=== PATIENT | female | born 1965 | race American Indian/Alaskan Native ===

== ENCOUNTER 2018-10-31 14:54 | Observation (INO) | payer MEDICAID, MEDICARE, OTHER ==
[2018-10-31] MEDS ORDERED: NS 0.9% 1000 ML** 1,000 ML IV ONE (15:23)
--- NOTE | 2018-10-31 15:29 | ED ---
Dizziness - HPI Summary HPI Summary: A 53 y/o female brought in by [facility] presents to [facility] with a chief complaint of dizziness. The patient reports that she went to [facility] because her PCP referred her to them when she said that she was dizzy with chest soreness. She claims that the dizziness started 3-5 days ago, and she states that she had a left ear ache before her dizziness started. She denies ear ringing. Her dizziness is worsened with walking and she describes the dizziness as room spinning. At triage she rated her pain as a 6/10 in severity. At [facility] the patient had an elevated troponin of 0.11. She had a chest CT done which showed no clot in lung. She denies any DVT claiming that she had a blood clot in a superficial vein. The patient is on Eliquis. - History Of Current Complaint Stated Complaint: ELEVATED TROP PER EMS Time Seen by Provider: 10/31/18 15:09 Hx Obtained From: Patient Onset/Duration: Suddenly Timing: Days Severity Initially: Mild Severity Currently: Moderate Character: Room Spinning, Dizzy Aggravating Factor(s): Nothing Alleviating Factor(s): Nothing Associated Signs And Symptoms: Positive: Chest Pain. Negative: Fever - Allergies/Home Medications Allergies/Adverse Reactions: Allergies Allergy/AdvReac Type Severity Reaction Status Date / Time Adhesive Tape Allergy Unknown SKIN PEELS Verified 09/22/18 10:46 WHEN BEING REMOVED hydrocortisone Allergy rash, Verified 09/22/18 10:46 itching latex Allergy sores Verified 09/22/18 10:46 naproxen Allergy Nausea Verified 09/22/18 10:46 topiramate Allergy Blurred Verified 09/22/18 10:46 Vision zonisamide [From Zonegran] Allergy Headache Verified 09/22/18 10:46 gabapentin AdvReac Mild weight gain Verified 09/22/18 10:46 ENVIRONMENTAL Allergy Intermediate SOB, Uncoded 07/22/17 11:40 BURNING IN THROAT Home Medications: Home Medications Cyanocobalamin (Vitamin B-12) [Vitamin B-12] 1,000 mcg SL DAILY 10/31/18 [ History Confirmed 10/31/18] Diazepam TAB(*) [Valium TAB(*)] 2.5 mg PO TID PRN MDD 2.5mg 10/31/18 [History Confirmed 10/31/18] Docusate CAP* [Colace Cap*] 100 mg PO BID PRN 10/31/18 [History Confirmed ] busPIRone TAB* [Buspar TAB *] 15 mg PO TID 10/31/18 [History Confirmed 10/31/18] tiZANidine TAB* [Zanaflex TAB*] 4 mg PO BID PRN 10/31/18 [History Confirmed 04/10] PMH/Surg Hx/FS Hx/Imm Hx Endocrine/Hematology History: Denies: Hx Diabetes - HISTORY OF LOW BLOOD SUGAR Cardiovascular History: Reports: Hx Angina, Hx Hypercholesterolemia, Hx Hypertension, Other Cardiovascular Problems/Disorders - HX OF ANKLE SWELLING IN THE PAST Respiratory History: Reports: Hx Asthma - SLEEP APNEA, Hx Pneumonia, Hx Sleep Apnea - NO MACHINE AT PRESENT TIME, Other Respiratory Problems/Disorders - Chronic Sinus Problems GI History: Reports: Hx Gastroesophageal Reflux Disease - CONTROL WITH MEDICATION, Other GI Disorders - HX OF GASTRIC BYPASS History: Reports: Hx Kidney Infection, Hx Kidney Stones - BI-LATERAL, Other Problems/Disorders Musculoskeletal History: Reports: Hx Arthritis, Hx Back Problems, Hx Fibromyalgia, Hx Tendonitis, Other Musculoskeletal History - Bilateral Carpal Tunnel Sensory History: Reports: Hx Contacts or Glasses - GLASSES Denies: Hx Hearing Aid Opthamlomology History: Reports: Hx Contacts or Glasses - GLASSES Neurological History: Reports: Hx Headaches, Hx Migraine Psychiatric History: Reports: Hx Anxiety, Hx Depression - Surgical History Surgery Procedure, Year, and Place: 2005 Open Gastric Bypass and Cholecystectomy , [facility]. 1989' Bilateral Carpal Tunnel Surgery, [place]. Umbilical Hernia Surgery x2, [place]. Three D&C's, [place]. Kidney Stone Procedures x2, [place]; [place] [facility] [place]. 2007 DILATION CURETTAGE, HYSTEROSCOPY, OPEN EXPLORATION OF ABDOMINAL WALL, REMOVAL FIBROID [place] [facility] [place]OTAL [place]BDOM[place] [facility] [place]. [place]2012 [place]SW[place] [facility] [place]x Anesthesia Reactions: Yes - woke early during a general with intubation Infectious Disease History: No Infectious Disease History: Reports: Hx Shingles - 2014 Denies: Traveled Outside the [place] in Last 30 Days - Family History Known Family History: Positive: Cardiac Disease - Social History Alcohol Use: None Alcohol Amount: 2-3 drinks per year. Substance Use Type: Reports: None Substance Use Comment - Amount & Last Used: fentanyl patch and Nucynta Smoking Status (MU): Never Smoked Tobacco Have You Smoked in the Last Year: No Review of Systems Negative: Fever Positive: Chest Pain Neurological: Other - positive: dizziness All Other Systems Reviewed And Are Negative: Yes Physical Exam - Summary Physical Exam Summary: GENERAL: Patient is a well-developed and nourished F who is lying comfortable in the stretcher. Patient is not in any acute respiratory distress. HEAD AND FACE: Normocephalic EYES: PERRLA, EOMI x 2. EARS: Hearing grossly intact. MOUTH: Oropharynx within normal limits. NECK: Supple, trachea is midline, no adenopathy, no JVD, no carotid bruit. CHEST: Symmetric, no tenderness at palpation LUNGS: Clear to auscultation bilaterally. No wheezing or crackles. CVS: Regular rate and rhythm, S1 and S2 present, no murmurs or gallops appreciated. ABDOMEN: Soft, non-tender. Bowel sounds are normal. No abnormal abdominal pulsations. EXTREMITIES: LLE 1+ pitting edema and erythema to anterior area NEURO: Alert and oriented x 3. No acute neurological deficits. Speech is normal and follows commands. SKIN: Dry and warm Neuro exam extended: Cranial nerves II-XII grossly intact, no dysmetria finger to nose, nml heel to ribeiro Triage Information Reviewed: Yes Vital Signs On Initial Exam: Initial Vitals Temp Pulse Resp BP Pulse Ox 97.9 F 56 20 135/90 99 10/31/18 15:13 10/31/18 15:13 10/31/18 15:13 10/31/18 15:13 10/31/18 15:13 Vital Signs Reviewed: Yes Diagnostics - Vital Signs Vital Signs Temp Pulse Resp BP Pulse Ox 10/31/18 15:13 97.9 F 56 20 135/90 99 - Laboratory Result Diagrams: 10/31/18 15:35 10/31/18 15:35 Lab Statement: Any lab studies that have been ordered have been reviewed, and results considered in the medical decision making process. - CT Brain MRI CT Interpretation Completed By: Radiologist Summary of CT Findings: 1. NO EVIDENCE FOR ACUTE INTRACRANIAL ABNORMALITY. 2. A FEW SMALL AREAS OF INCREASED SIGNAL INTENSITY IN T2-WEIGHTED IMAGES IN THE. SUBCORTICAL AND PERIVENTRICULAR WHITE MATTER SUGGESTIVE OF MILD CHRONIC SMALL VESSEL. ISCHEMIC CHANGES LESS LIKELY DEMYELINATING DISEASE. ED physician has reviewed this imaging report. - EKG 15:42 Cardiac Rate: Bradycardia - 54 bpm EKG Rhythm: Sinus Bradycardia Summary of EKG Findings: Sinus bradycardia at 54bpm, intraventricular conduction delay. Dizzy Course/Dx - Course Course Of Treatment: A 53 y/o female brought in by [facility] presents to [facility] with a chief complaint of dizziness. The physical exam revealed LLE 1+ pitting edema and erythema to anterior area. EKG at 15:42 showed Sinus bradycardia at 54 bpm, intraventricular conduction delay. In the ED course the patient was given Sodium Chloride IV. Bloodwork and chemistries obtained. Troponin of 0.09 at 15:35. Brain MRI impression: 1. NO EVIDENCE FOR ACUTE INTRACRANIAL ABNORMALITY. 2. A FEW SMALL AREAS OF INCREASED SIGNAL INTENSITY IN T2-WEIGHTED IMAGES IN THE. SUBCORTICAL AND PERIVENTRICULAR WHITE MATTER SUGGESTIVE OF MILD CHRONIC SMALL VESSEL. ISCHEMIC CHANGES LESS LIKELY DEMYELINATING DISEASE. The patient will be admitted. Case discussed with hospitalist, Dr. Underwood. I discussed results with patient. The patient agrees with this plan - Diagnoses Provider Diagnoses: Chest pain - Provider Notifications Discussed Care Of Patient With: Annika Castaneda Time Discussed With Above Provider: 16:23 Instructed by Provider To: Other - wants an MRI done first Discharge - Sign-Out/Discharge Documenting (check all that apply): Patient Departure - admit Patient Received Moderate/Deep Sedation with Procedure: No - Discharge Plan Condition: Fair Disposition: ADMITTED TO [facility] - Billing Disposition and Condition Condition: FAIR Disposition: Admitted to [facility] - Attestation Statements Document Initiated by Scribe: Yes Documenting Scribe: Donovan Garcia Provider For Whom Evangelista is Documenting (Include Credential): Shashank Saenz MD Scribe Attestation: I, Donovan Garcia, scribed for Shashank Saenz MD on 10/31/18 at 1839. Scribe Documentation Reviewed: Yes Provider Attestation: The documentation as recorded by the Donovan gonzalez accurately reflects the service I personally performed and the decisions made by me, Teresita Saenz MD Status of Scribe Document: Viewed Consult Consult: At 18:[address] Underwood, hospitalist, who accepted the patient for admission.
[2018-10-31 15:43] LABS: ABS Eosinophils 0.2 10^3/ul (0-0.6); ABS Lymphocytes 2.4 10^3/ul (1.0-4.8); ABS Monocytes 0.5 10^3/ul (0-0.8); ABS Neutrophils 3.5 10^3/ul (1.5-7.7); Eosinophil % 3.5 %; Hematocrit 40 % (35-47); Hemoglobin 13.7 g/dL (12.0-16.0); Mean Corpuscular HGB Conc 34 g/dL (31-36); Mean Corpuscular Hemoglobin 32 pg (27-31); Mean Corpuscular Volume 92 fL (80-97); Mean Platelet Volume 8.6 fL (7.4-10.4); Platelet Count 195 10^3/uL (150-450); Red Blood Count 4.33 10^6 /uL (3.70-4.87); Red Cell Distribution Width 14 % (10-15); White Blood Count 6.7 10^3/uL (3.5-10.8)
[2018-10-31 16:03] LABS: Activated Partial Thrombo Time 36.4 seconds (26.0-38.0); INR 1.06 (0.82-1.09)
[2018-10-31 16:11] LABS: ALT 24 U/L (7-52); AST 20 U/L (13-39); Albumin 3.8 g/dL (3.2-5.2); Albumin/Globulin Ratio 1.4 (1-3); Alkaline Phosphatase 76 U/L (34-104); Anion Gap 5 mmol/L (2-11); BUN/Creatinine Ratio 16.1 (8-20); Blood Urea Nitrogen 15 mg/dL (6-24); CO2 Carbon Dioxide 29 mmol/L (22-32); Calcium 9.1 mg/dL (8.6-10.3); Chloride 106 mmol/L (101-111); EGFR Non-African American 62.8 (>60); Globulin 2.7 g/dL (2-4); Glucose 88 mg/dL (70-100); Magnesium 2.1 mg/dL (1.9-2.7); Potassium 4.3 mmol/L (3.5-5.0); Sodium 140 mmol/L (135-145); Total Protein 6.5 g/dL (6.4-8.9)
[2018-10-31 16:12] LABS: Troponin I 0.09 ng/mL (<0.04)
[2018-10-31] MEDS ORDERED: Docusate CAP* 100 MG PO PRN (18:23)
[2018-10-31] MEDS ORDERED: Zolpidem TAB* 10 MG PO PRN (18:23)
[2018-10-31] MEDS ORDERED: tiZANidine TAB* 2 MG PO PRN (18:23)
[2018-10-31] MEDS ORDERED: Tapentadol(NF) 50 MG TAB PO PRN (18:23)
[2018-10-31] MEDS ORDERED: Albuterol HFA INHALER* 8 gm MDI INH PRN (18:23)
[2018-10-31 19:00] LABS: Troponin I 0.08 ng/mL (<0.04)
--- NOTE | 2018-10-31 19:06 | HP ---
History of Present Illness - History of Present Illness Reason for Visit: dizziness History of Present Illness: Patient is a 53 year old woman with chronic pain who presented to the [facility] ED today with 3-4 days of dizziness. She describes the dizziness as a feeling of tilting, and she has trouble walking and trouble focusing her vision when it occurs episodically. It is worse w/ movement. She denies orthostatic dizziness or pre-syncope. She has left ear pain, but was told there is no infection there. She also had episodes of moderate substernal chest pain 2 days ago, with radiation to the LT arm. She denies palpitations, SOB, nausea or vomiting. She has no cardiac history, though she had a negative nuclear stress test in Jan 2016 here at [facility]. Previous H&Ps list hypertension, dyslipidemia, though she denies this. In the [place] ER, she had an elevated troponin at 0.11, and had a negative CTA chest, no pulmonary embolism seen. She states she was diagnosed with a blood clot in the LEFT leg about 2 months ago, and remains on Eliquis for this. Edema has continued to develop during the day, and it improves at night. She has some LT groin pain. - Past Medical History Pulmonary: Other - sleep apnea, not currently on CPAP, machine broke Gastrointestinal: GERD Psych: Anxiety, Depression Musculoskeletal: Chronic low back pain, Osteoarthritis, Other - chronic neck pain, disabling, sees [facility] pain clinic Rheumatologic: Fibromyalgia Renal/: Other - nephrolithiasis Grav: 2 Para: 2 - Past Surgical History Past Surgical History: Cholecystectomy, Other - gastric bypass 2005, carpal tunnel release , Total Knee Replacement - LT 2015 - Past Family History Family History: DM - mother and father, Other - father ESRD, brother has depression/anxiety - Past Social History Smoke: No Alcohol: None Drugs: None Lives: Alone - 2 children Domestic Violence: Negative Review of Systems - Measurements Intake and Output: Intake and Output Last 24 Hours 10/29/18 10/30/18 10/31/18 11/01/18 06:59 06:59 06:59 06:59 Weight 117.934 kg - Review of Systems Constitutional Symptoms: Negative: Weight Gain Dermatology: Positive: Normal HEENT: Positive: Vertigo, Other - LT ear pain Eyes: Positive: Normal Thyroid: Positive: Normal Pulmonary: Positive: Normal Cardiology: Positive: Chest Pain Negative: Shortness of Breath, Palpitations Gastroenterology: Positive: Normal Genital - Urinary: Positive: Normal Genitourinay - Female: Positive: Menopause Hematologic/Lymphatic: Positive: Use of Anticoagulant Neurology: Positive: Change in Vision, Dizziness, Change in Balancing, Change in Walking Negative: Diplopia Psychiatry: Positive: Depression, Anxiety Objective Active Medications: Home Meds Albuterol (Ventolin Hfa Inhaler*) 2 puff INH Q4H PRN PRN Reason: SOB/WHEEZING Apixaban (Eliquis*) 5 mg PO BID KUSUM Aripiprazole (Abilify Tab*) 20 mg PO BEDTIME KUSUM Buspirone HCl (Buspar Tab*) 15 mg PO TID KUSUM Desvenlafaxine Succinate (Pristiq(Nf)) 100 mg PO QAM KUSUM Diazepam (Valium Tab(*)) 2.5 mg PO TID PRN PRN Reason: ANXIETY Docusate Sodium (Colace Cap*) 100 mg PO BID PRN PRN Reason: CONSTIPATION Fentanyl (Duragesic Patch 25 Mcg/Hr*) 25 mcg TRANSDERM EVERY OTHER DAY K[facility]UM Gabapentin (Neurontin Cap(*)) 300 mg PO TID KUSUM Non-Formulary Medication (Cyanocobalamin (Vitamin B-12) [Vitamin B-12]) 1,000 mcg SL DAILY K[facility] Sucralfate (Carafate*) 1 gm PO QID KUSUM Tapentadol (Nucynta(Nf)) 50 mg PO BID PRN PRN Reason: PAIN Tizanidine HCl (Zanaflex Tab*) 4 mg PO BID PRN PRN Reason: SPASMS - MUSCLE Zolpidem Tartrate (Ambien Tab*) 10 mg PO BEDTIME PRN; Protocol PRN Reason: INSOMNIA Vital Signs - 8 hr 10/31/18 10/31/18 10/31/18 15:08 15:09 15:13 Temperature 36.6 C Pulse Rate 58 55 56 Respiratory 21 14 20 Rate Blood Pressure 135/90 135/90 (mmHg) O2 Sat by Pulse 97 99 99 Oximetry 10/31/18 17:44 Temperature Pulse Rate 59 Respiratory 16 Rate Blood Pressure 133/89 (mmHg) O2 Sat by Pulse 99 Oximetry Oxygen Devices in Use Now: None Appearance: alert, no distress Eyes: No Scleral Icterus Ears/Nose/Mouth/Throat: NL Teeth, Lips, Gums, Clear Oropharnyx, Mucous Membranes Moist Neck: NL Appearance and Movements; NL JVP, Trachea Midline Respiratory: Symmetrical Chest Expansion and Respiratory Effort, Clear to Auscultation Cardiovascular: NL Sounds; No Murmurs; No JVD, RRR, - - 1+ edema, tenderness, LLE Abdominal: NL Sounds; No Tenderness; No Distention, No Hepatosplenomegaly Lymphatic: No Cervical Adenopathy Extremities: No Edema Skin: No Rash or Ulcers Neurological: Alert and Oriented x 3 Lines/Tubes/Other Access: Clean, Dry and Intact Peripheral IV Nutrition: Taking PO's Result Diagrams: 10/31/18 15:35 10/31/18 15:35 Additional Lab and Data: Laboratory Tests 10/31/18 10/31/18 10/31/18 15:35 15:35 15:35 INR (Anticoag Therapy) 1.06 APTT 36.4 Glucose 88 Lactic Acid 0.6 AST 20 ALT 24 Troponin I 0.09 H* B-Natriuretic Peptide Albumin 3.8 10/31/18 15:35 INR (Anticoag Therapy) APTT Glucose Lactic Acid AST ALT Troponin I B-Natriuretic Peptide 70 Albumin Diagnostic Imaging: MRI brain: negative CTA chest: no PE EKG Data: sinus bradycardia, borderline IVCD Assess/Plan/Problems-Billing Assessment: 53 year old woman with vertigo, atypical chest pain, elevated troponin - Patient Problems (1) Chest pain at rest Current Visit: Yes Status: Acute Priority: High Code(s): R07.9 - CHEST PAIN, UNSPECIFIED SNOMED Code(s): 1999909 Comment: -Differential includes anxiety, pericarditis, coronary artery disease, GERD. -Will admit to telemetry, follow serial troponins -Will consult cardiology if troponin elevates further, or unstable angina clinically develops. -Start aspirin today, start beta khushbu after stress test (2) Left leg DVT Current Visit: Yes Status: Acute Priority: Medium Code(s): I82.402 - ACUTE EMBOLISM AND THOMBOS UNSP DEEP VEINS OF L LOW EXTREM SNOMED Code(s): 651762848 Comment: -No PE seen on CTA today -Unclear whether deep or superficial, and whether progressing or resolving -Will have LE doppler tomorrow to reassess. -Continue Eliquis (3) Chronic pain due to injury Current Visit: Yes Status: Acute Priority: Medium Code(s): G89.21 - CHRONIC PAIN DUE TO TRAUMA SNOMED Code(s): 506201522 Comment: -Will continue outpatient medications and bowel regimen (4) Vertigo, benign paroxysmal Current Visit: Yes Status: Acute Priority: Medium Code(s): H81.10 - BENIGN PAROXYSMAL VERTIGO, UNSPECIFIED EAR SNOMED Code(s): 651533818 Comment: -Differential includes viral labyrinthitis, otolith disease, medication side effects -Reassured not neoplasm or stroke, due to negative MRI. -May need outpatient PT (5) DVT prophylaxis Current Visit: Yes Status: Acute Priority: Low Code(s): Z29.9 - ENCOUNTER FOR PROPHYLACTIC MEASURES, UNSPECIFIED SNOMED Code(s): 618772021 Comment: -Continue Eliquis Status and Disposition: observation
[2018-10-31] MEDS ORDERED: ARIPiprazole TAB* 20 MG PO SCH (21:00)
[2018-10-31] MEDS: Apixaban* 5 MG TAB PO SCH (21:22)
[2018-10-31] MEDS: Sucralfate TAB* 1 GM PO SCH (21:23)
[2018-10-31] MEDS: Aspirin EC TAB* 81 MG TAB.EC PO SCH (21:23)
[2018-10-31] MEDS: Gabapentin CAP(*) 300 MG PO SCH (21:24)
[2018-10-31] MEDS: busPIRone TAB* 5 MG PO SCH (21:26)
[2018-10-31] MEDS: Diazepam TAB(*) 5 MG PO PRN (21:27)
[2018-10-31] MEDS ORDERED: Heparin VIAL(*) 5000 UNITS/ML VIAL (FIVE THOUSAND) SUBCUT SCH (22:00)
[2018-10-31 23:05] LABS: Troponin I 0.08 ng/mL (<0.04)
[2018-11-01 02:19] LABS: Troponin I 0.08 ng/mL (<0.04)
[2018-11-01] MEDS ORDERED: fentaNYL Patch Check Q Shift 1 NOTE FOLLOW UP SCH (07:00)
[2018-11-01] MEDS ORDERED: Regadenoson* 0.4 MG/5 ML SYRINGE ONE (07:31)
[2018-11-01] MEDS ORDERED: Aminophylline IV* 25 MG/ML 10 ML VIAL ONE (07:31)
[2018-11-01] MEDS ORDERED: Cyanocobalamin TAB* 500 MCG PO SCH (09:00)
[2018-11-01] MEDS ORDERED: CMCS:Desvenlafaxine (NF) 50 MG TAB PO SCH (09:00)
[2018-11-01] MEDS: Diazepam TAB(*) 5 MG PO PRN (10:15)
[2018-11-01] MEDS ORDERED: fentaNYL PATCH 25 MCG/HR TRANSDERM SCH (10:30)
[2018-11-01] MEDS: busPIRone TAB* 5 MG PO SCH ×2 (12:51→14:18)
[2018-11-01] MEDS: Aspirin EC TAB* 81 MG TAB.EC PO SCH (12:52)
[2018-11-01] MEDS: Sucralfate TAB* 1 GM PO SCH ×2 (12:53→14:19)
[2018-11-01] MEDS: Gabapentin CAP(*) 300 MG PO SCH ×2 (12:53→14:18)
[2018-11-01] MEDS: Apixaban* 5 MG TAB PO SCH (12:54)
[2018-11-01 13:33] VITALS: BP 142/81
[2018-11-01] MEDS ORDERED: Sucralfate TAB* 1 GM PO SCH (16:00)
--- NOTE | 2018-11-02 11:12 | DS ---
CC: Dr. Nehemiah Chavarria DISCHARGE SUMMARY: DATE OF ADMISSION: 10/31/18 DATE OF DISCHARGE: 11/01/18 PRIMARY DIAGNOSIS: Noncardiac chest pain. SECONDARY DIAGNOSES: 1. Benign positional vertigo, suspected viral labyrinthitis, left ear. 2. Sleep apnea, not currently on CPAP. 3. Gastroesophageal reflux disease. 4. Anxiety. 5. Depression. 6. Chronic low back pain. 7. Osteoarthritis. 8. Chronic neck pain, status post trauma. 9. Fibromyalgia. 10. Nephrolithiasis. 11. Deep vein thrombosis, left lower extremity. MEDICATIONS ON DISCHARGE: 1. Albuterol inhaler 2 puffs q.4 hours p.r.n. for wheezing. 2. Eliquis 5 mg p.o. b.i.d. 3. Abilify 20 mg p.o. at bedtime. 4. BuSpar 50 mg p.o. t.i.d. 5. Vitamin B12 at 1000 mcg sublingual daily. 6. Pristiq 100 mg p.o. q.a.m. 7. Valium 2.5 mg p.o. t.i.d. p.r.n. for anxiety. 8. Docusate 100 mg p.o. b.i.d. 9. Fentanyl patch 25 mcg topically q.3 days. 10. Gabapentin 300 mg p.o. t.i.d. 11. Sucralfate 1 g p.o. q.i.d. 12. Nucynta 50 mg p.o. b.i.d. p.r.n. for pain. 13. Zanaflex 4 mg p.o. b.i.d. p.r.n. 14. Ambien CR 12.5 mg p.o. at bedtime. 15. Aspirin 81 mg p.o. daily. HOSPITAL COURSE: The patient was admitted through the [facility] ER after a visit to the [facility] ER for dizziness and substernal chest pain. She had a negative CT angiogram at [facility] as pulmonary embolus was highly suspected due to her recent diagnosis of DVT. She did have an elevated troponin of 0.11 at [place] and was transferred for cardiac workup at this hospital. She did not have any further chest discomfort while she was here. Repeat troponin testing initially was 0.09 and it fell to 0.08 on discharge. Normal lactic acid. Normal electrolytes. Normal coagulation studies. Normal CBC. MRI of the brain obtained due to dizziness showed no cerebellar stroke, no acoustic nerve masses. There are some subcortical and periventricular white matter changes suggestive of small- vessel disease. On the day after admission , the patient had a chemical nuclear cardiac stress test, which showed a normal ejection fraction. No infarct and a possible small reversible defect in the inferior aspect of the lateral wall suggestive of ischemia. I did discuss this case with Dr. Cruiel, who ran a stress test as he thought that this area of ischemia was artifact or next to nothing. We are recommending outpatient cardiology followup to be arranged by primary care. The patient tolerated the baby aspirin a day and this was added to her discharge medications. The patient denies significant cardiac risk factors such as hypertension and hyperlipidemia. She has no history of smoking and likely does have hyperlipidemia as she has an allergy to statins listed on her chart. I explained to her that the vertigo was due to her inner ear phenomenon either due to otoliths or viral labyrinthitis. If she continues to have vertigo, she should be referred for physical therapy for treatment. STATUS: Observation. CONDITION: Stable. DISPOSITION: To home. DIET: Heart-healthy diet. ACTIVITY: As tolerated. [id number]/[facility] #: [id number] MTDD
== END 2018-11-01 16:15 | disposition home or self-care (01) ==
LOC: ED 14:54 → MEDTELE 18:21
PROVIDERS: ADMIT Internal Medicine; ATTEND Internal Medicine
DX: R07.89 Other chest pain (principal); H81.12 Benign paroxysmal vertigo, left ear; G47.33 Obstructive sleep apnea (adult) (pediatric); K21.9 Gastro-esophageal reflux disease without esophagitis; F41.9 Anxiety disorder, unspecified; F32.9 Major depressive disorder, single episode, unspecified; M54.5 Low back pain; M19.90 Unspecified osteoarthritis, unspecified site; M54.2 Cervicalgia; M79.7 Fibromyalgia; N20.0 Calculus of kidney; I82.402 Acute embolism and thrombosis of unspecified deep veins of left lower extremity; Z79.01 Long term (current) use of anticoagulants; Z79.82 Long term (current) use of aspirin; Z79.899 Other long term (current) drug therapy
CPT/HCPCS: 36415; 70551; 78452; 80053; 83605; 83735; 83880; 84484; 85025; 85610; 85730; 93005; 93017; 99284; A9270-GY; A9502; G0378; J0280; J2785

== ENCOUNTER 2023-10-18 12:34 | Observation (INO) ==
[2023-10-18 14:08] LABS: ABS Eosinophils 0.3 10^3/uL (0.0-0.5); ABS Lymphocytes 2.5 10^3/uL (1.0-4.8); ABS Monocytes 0.5 10^3/uL (0.0-0.9); ABS Neutrophils 2.7 10^3/uL (1.5-7.6); ABS Nucleated RBC 0.01 10^3/ul; Eosinophil % 4.4 %; Hematocrit 40.4 % (35-45); Hemoglobin 13.8 g/dL (11.5-14.3); Lymphocyte % 40.9 %; Mean Corpuscular Hemoglobin 31.8 pg (27-33); Mean Corpuscular Hgb Conc 34.1 g/dL (31-36); Mean Corpuscular Volume 93.2 fL (80-97); Mean Platelet Volume 8.5 fL (7.5-11.2); Nucleated Red Blood Cells % 0.1 %/100WBC (0.0-0.8); Platelet Count 256 10^3/uL (150-450); Red Blood Count 4.33 10^6/uL (3.63-4.92); Red Cell Distribution Width 13.9 % (12-17)
[2023-10-18 14:31] LABS: Activated Partial Thrombo Time 32.1 seconds (26.0-38.0); INR 1.05 (0.83-1.13)
[2023-10-18] MEDS ORDERED: fentaNYL 100 mcg/2 ml 50 MCG/ML VIAL ONE (14:51)
[2023-10-18] MEDS ORDERED: Heparin 1,000 UNIT/ML 10 ml (10,000 UNITS) CATHLAB/DIALYSIS ONE (14:51)
[2023-10-18] MEDS ORDERED: VERAPAMIL 2.5 MG/ML 2 ML VIAL ** 5 mg/2 ml ONE (14:51)
[2023-10-18] MEDS ORDERED: Midazolam 5 mg/5 ml VIAL 1 mg/ml 5 ml VIAL (5 mg) ONE (14:51)
[2023-10-18] MEDS ORDERED: Heparin 2 UNITS/ML 1000 mls 2,000 ML IV ONE (14:52)
[2023-10-18] MEDS ORDERED: Lidocaine 1% MPF 5 ML VIAL ONE (14:52)
[2023-10-18] MEDS ORDERED: Iohexol 350 (CONTRAST) 200 ML MDV IV ONE (14:52)
[2023-10-18] MEDS ORDERED: nitroGLYCERIN DRIP 25,000 MCG/250 ML BTL ONE (14:52)
[2023-10-18 15:07] LABS: Albumin 4.2 g/dL (3.2-5.2); Albumin/Globulin Ratio 1.7 (1-3); Calcium 9.5 mg/dL (8.6-10.3); Creatinine, Serum 0.66 mg/dL (0.51-0.95); Globulin 2.5 g/dL (2-4); Magnesium 1.9 mg/dL (1.9-2.7); Potassium 4.3 mmol/L (3.5-5.0); Total Bilirubin 0.5 mg/dL (0.2-1.0); Total Protein 6.7 g/dL (6.4-8.9)
[2023-10-18] MEDS ORDERED: Iohexol 350 (CONTRAST) 100 ML PAK IV ONE (15:44)
[2023-10-18] MEDS ORDERED: Albuterol HFA INHALER 8 gm MDI INH PRN (16:26)
[2023-10-18] MEDS: NS 0.9% 1000 ml BAG 1,000 ML IV SCH (18:10)
[2023-10-18] MEDS: Midazolam 10 mg/10 ml VIAL 1 mg/ml 10 ml VIAL (10 mg) IV SLOW PU ONE (18:36)
[2023-10-18] MEDS: fentaNYL 100 mcg/2 ml 50 MCG/ML VIAL IV SLOW PU ONE (18:36)
[2023-10-19 08:15] LABS: High Sensitivity Troponin 1 Hr 7 pg/mL (<15)
[2023-10-19] MEDS: Multivitamins/Minerals TAB PO SCH (08:38)
[2023-10-19] MEDS: Aspirin EC 81 mg TAB.EC (enteric coated) PO SCH (08:39)
[2023-10-19] MEDS: Calcium/Vitamin D TAB 250/125 TAB PO SCH (08:39)
[2023-10-19] MEDS: Desvenlafaxine 50 mg TAB ER (NF) PO SCH (08:39)
[2023-10-19 10:02] VITALS: BP 131/83
== END 2023-10-19 14:45 | disposition home or self-care (01) ==
LOC: SUATTDRO 14:13 → MEDTELE 14:13 → INTOOBSV 14:13
PROVIDERS: ADMIT Internal Medicine; ATTEND Hospitalist

== ENCOUNTER 2023-11-02 18:19 | Inpatient (IN) ==
[2023-11-02 19:12] LABS: ABS Eosinophils 0.1 10^3/uL (0.0-0.5); ABS Lymphocytes 2.6 10^3/uL (1.0-4.8); ABS Monocytes 0.4 10^3/uL (0.0-0.9); Eosinophil % 1.5 %; Hemoglobin 10.8 g/dL (11.5-14.3); Mean Corpuscular Hemoglobin 32.5 pg (27-33); Mean Corpuscular Hgb Conc 34.9 g/dL (31-36); Mean Corpuscular Volume 92.9 fL (80-97); Mean Platelet Volume 8.8 fL (7.5-11.2); Platelet Count 229 10^3/uL (150-450); Red Blood Count 3.33 10^6/uL (3.63-4.92); Red Cell Distribution Width 13.4 % (12-17); White Blood Count 8.2 10^3/uL (3.8-11.8)
[2023-11-02] MEDS: Pantoprazole 80 mg in NS BAG 80 MG/250 ML BAG IV ONE (19:17)
[2023-11-02 19:28] LABS: Activated Partial Thrombo Time 25.7 seconds (26.0-38.0); INR 1.13 (0.83-1.13)
[2023-11-02 20:00] LABS: Albumin 3.7 g/dL (3.2-5.2); Albumin/Globulin Ratio 1.8 (1-3); Calcium 8.5 mg/dL (8.6-10.3); Creatinine, Serum 0.68 mg/dL (0.51-0.95); Globulin 2.1 g/dL (2-4); Potassium 4.5 mmol/L (3.5-5.0); Total Bilirubin 0.3 mg/dL (0.2-1.0); Total Protein 5.8 g/dL (6.4-8.9); eGFR CKD-EPI 100.3 (>60)
[2023-11-02] MEDS ORDERED: Albuterol HFA INHALER 8 gm MDI INH PRN (21:24)
[2023-11-02 23:17] LABS: Hematocrit 28.3 % (35-45); Hemoglobin 9.9 g/dL (11.5-14.3)
[2023-11-03] MEDS: Pantoprazole VIAL 40 MG VIAL IV SCH (05:40)
[2023-11-03 06:39] LABS: ABS Eosinophils 0.3 10^3/uL (0.0-0.5); ABS Lymphocytes 2.1 10^3/uL (1.0-4.8); ABS Monocytes 0.5 10^3/uL (0.0-0.9); ABS Neutrophils 2.8 10^3/uL (1.5-7.6); Eosinophil % 4.6 %; Hematocrit 28.8 % (35-45); Hemoglobin 10.1 g/dL (11.5-14.3); Lymphocyte % 37.4 %; Mean Corpuscular Hemoglobin 32.6 pg (27-33); Mean Corpuscular Hgb Conc 35.1 g/dL (31-36); Mean Corpuscular Volume 92.9 fL (80-97); Mean Platelet Volume 9.3 fL (7.5-11.2); Nucleated Red Blood Cells % 0.1 %/100WBC (0.0-0.8); Platelet Count 203 10^3/uL (150-450); Red Cell Distribution Width 13.6 % (12-17); White Blood Count 5.7 10^3/uL (3.8-11.8)
[2023-11-03 06:52] LABS: Calcium 8.4 mg/dL (8.6-10.3); Creatinine, Serum 0.66 mg/dL (0.51-0.95); Potassium 4.2 mmol/L (3.5-5.0)
[2023-11-03] MEDS: CMCS: Desvenlafaxine 50 mg TAB ER (NF) PO SCH (08:30)
[2023-11-03] MEDS ORDERED: Lidocaine 2% PF 5 ML VIAL ONE (13:05)
[2023-11-03] MEDS ORDERED: Propofol 10 MG/ML 20 ML BTL ONE ×2 (13:05→14:27)
[2023-11-03] MEDS ORDERED: Midazolam 2 mg/2 ml VIAL 1 mg/ml 2 ml VIAL (2 mg) ONE (13:05)
[2023-11-03] MEDS ORDERED: fentaNYL 100 mcg/2 ml 50 MCG/ML VIAL ONE (13:05)
[2023-11-03] MEDS: Pantoprazole 80 mg in NS BAG 80 MG/250 ML BAG IV SCH (16:34)
[2023-11-03 18:00] LABS: Hematocrit 28.2 % (35-45); Hemoglobin 9.7 g/dL (11.5-14.3)
[2023-11-04 06:55] LABS: ABS Eosinophils 0.3 10^3/uL (0.0-0.5); ABS Lymphocytes 2.3 10^3/uL (1.0-4.8); ABS Monocytes 0.3 10^3/uL (0.0-0.9); ABS Neutrophils 1.9 10^3/uL (1.5-7.6); ABS Nucleated RBC 0.01 10^3/ul; Eosinophil % 6.2 %; Hematocrit 31.9 % (35-45); Hemoglobin 11.1 g/dL (11.5-14.3); Lymphocyte % 47.7 %; Mean Corpuscular Hemoglobin 32.6 pg (27-33); Mean Corpuscular Hgb Conc 34.9 g/dL (31-36); Mean Corpuscular Volume 93.4 fL (80-97); Mean Platelet Volume 9.6 fL (7.5-11.2); Nucleated Red Blood Cells % 0.2 %/100WBC (0.0-0.8); Platelet Count 213 10^3/uL (150-450); Red Blood Count 3.41 10^6/uL (3.63-4.92); Red Cell Distribution Width 13.5 % (12-17); White Blood Count 4.9 10^3/uL (3.8-11.8)
[2023-11-04 07:14] LABS: Calcium 8.9 mg/dL (8.6-10.3); Creatinine, Serum 0.72 mg/dL (0.51-0.95); Potassium 4.2 mmol/L (3.5-5.0); eGFR CKD-EPI 96.3 (>60)
[2023-11-04 10:09] LABS: High Sensitivity Troponin 1 Hr 3 pg/mL (<15)
[2023-11-04 16:38] LABS: Hematocrit 30.7 % (35-45); Hemoglobin 10.6 g/dL (11.5-14.3)
[2023-11-05 08:00] LABS: Calcium 8.9 mg/dL (8.6-10.3); Creatinine, Serum 0.75 mg/dL (0.51-0.95); Potassium 4.3 mmol/L (3.5-5.0); eGFR CKD-EPI 91.7 (>60)
[2023-11-05 09:53] LABS: ABS Eosinophils 0.3 10^3/uL (0.0-0.5); ABS Lymphocytes 1.9 10^3/uL (1.0-4.8); ABS Monocytes 0.4 10^3/uL (0.0-0.9); ABS Neutrophils 2.5 10^3/uL (1.5-7.6); ABS Nucleated RBC 0.01 10^3/ul; Eosinophil % 5.9 %; Hematocrit 29.9 % (35-45); Hemoglobin 10.4 g/dL (11.5-14.3); Lymphocyte % 36.8 %; Mean Corpuscular Hemoglobin 32.4 pg (27-33); Mean Corpuscular Hgb Conc 34.7 g/dL (31-36); Mean Corpuscular Volume 93.3 fL (80-97); Mean Platelet Volume 9.2 fL (7.5-11.2); Nucleated Red Blood Cells % 0.1 %/100WBC (0.0-0.8); Platelet Count 218 10^3/uL (150-450); Red Blood Count 3.21 10^6/uL (3.63-4.92); Red Cell Distribution Width 13.7 % (12-17); White Blood Count 5.1 10^3/uL (3.8-11.8)
[2023-11-05 16:09] LABS: ABS Eosinophils 0.4 10^3/uL (0.0-0.5); ABS Lymphocytes 2.3 10^3/uL (1.0-4.8); ABS Monocytes 0.5 10^3/uL (0.0-0.9); ABS Nucleated RBC 0.01 10^3/ul; Hematocrit 29.2 % (35-45); Hemoglobin 10.1 g/dL (11.5-14.3); Lymphocyte % 37.2 %; Mean Corpuscular Hemoglobin 32.2 pg (27-33); Mean Corpuscular Hgb Conc 34.7 g/dL (31-36); Mean Corpuscular Volume 92.7 fL (80-97); Mean Platelet Volume 8.7 fL (7.5-11.2); Nucleated Red Blood Cells % 0.1 %/100WBC (0.0-0.8); Platelet Count 233 10^3/uL (150-450); Red Blood Count 3.15 10^6/uL (3.63-4.92); Red Cell Distribution Width 13.4 % (12-17); White Blood Count 6.2 10^3/uL (3.8-11.8)
[2023-11-05] MEDS: Magnesium Sulfate IV 1GM/100ML 1 GM/100 ML BAG IV ONE (18:18)
[2023-11-06 07:35] LABS: ABS Eosinophils 0.4 10^3/uL (0.0-0.5); ABS Lymphocytes 2.3 10^3/uL (1.0-4.8); ABS Monocytes 0.4 10^3/uL (0.0-0.9); ABS Neutrophils 1.9 10^3/uL (1.5-7.6); Hematocrit 27.3 % (35-45); Hemoglobin 9.5 g/dL (11.5-14.3); Lymphocyte % 45.4 %; Mean Corpuscular Hemoglobin 32.6 pg (27-33); Mean Corpuscular Hgb Conc 34.8 g/dL (31-36); Mean Corpuscular Volume 93.6 fL (80-97); Nucleated Red Blood Cells % 0.1 %/100WBC (0.0-0.8); Platelet Count 217 10^3/uL (150-450); Red Blood Count 2.92 10^6/uL (3.63-4.92); Red Cell Distribution Width 13.4 % (12-17)
[2023-11-06 07:46] LABS: Calcium 8.5 mg/dL (8.6-10.3); Creatinine, Serum 0.76 mg/dL (0.51-0.95); eGFR CKD-EPI 90.2 (>60)
[2023-11-06] MEDS: Iohexol 350 (CONTRAST) 500 ML MDV IV ONE (11:57)
[2023-11-06 12:16] LABS: Albumin 3.6 g/dL (3.2-5.2); Albumin/Globulin Ratio 1.8 (1-3); Indirect Bilirubin 0.3 mg/dL (0.3-1.0); Total Bilirubin 0.3 mg/dL (0.2-1.0); Total Protein 5.6 g/dL (6.4-8.9)
[2023-11-06] MEDS ORDERED: PTO:Albuterol HFA INHALER 8 gm MDI INH PRN (13:49)
[2023-11-06] MEDS: Calcium Carb (TUMS) 500 mg CHEW TAB PO SCH (15:22)
[2023-11-06] MEDS: Pantoprazole 80 mg in NS BAG 80 MG/250 ML BAG IV SCH (21:42)
[2023-11-07 05:17] LABS: ABS Eosinophils 0.4 10^3/uL (0.0-0.5); ABS Lymphocytes 2.2 10^3/uL (1.0-4.8); ABS Monocytes 0.5 10^3/uL (0.0-0.9); ABS Neutrophils 3.2 10^3/uL (1.5-7.6); ABS Nucleated RBC 0.01 10^3/ul; Eosinophil % 6.1 %; Hematocrit 27.8 % (35-45); Hemoglobin 9.9 g/dL (11.5-14.3); Lymphocyte % 34.5 %; Mean Corpuscular Hemoglobin 32.8 pg (27-33); Mean Corpuscular Hgb Conc 35.6 g/dL (31-36); Mean Corpuscular Volume 92.2 fL (80-97); Mean Platelet Volume 8.8 fL (7.5-11.2); Nucleated Red Blood Cells % 0.1 %/100WBC (0.0-0.8); Platelet Count 241 10^3/uL (150-450); Red Blood Count 3.01 10^6/uL (3.63-4.92); Red Cell Distribution Width 13.8 % (12-17); White Blood Count 6.3 10^3/uL (3.8-11.8)
[2023-11-07 05:35] LABS: Calcium 8.9 mg/dL (8.6-10.3); Creatinine, Serum 0.84 mg/dL (0.51-0.95); Potassium 4.6 mmol/L (3.5-5.0)
[2023-11-07 09:38] VITALS: BP 119/67
== END 2023-11-07 12:20 | disposition home or self-care (01) | DRG 379 ==
LOC: ED 18:19 → EDHOLD 18:19 → SUATTDRO 20:23 → MED 11-03 00:21
PROVIDERS: ADMIT Student in an Organized Health Care Education/Training Program; ATTEND Internal Medicine
PROC: O.GIEGD (2023-11-03 13:35)

== ENCOUNTER 2024-03-13 09:09 | Observation (INO) ==
[~2024-03-13 09:09] MED LIST: Buffered Lidocaine 1% SYRIN 1 ml INTRADERM ONE; HYDROmorphone 0.5 MG/0.5 ML SYRINGE ONE; KETAMINE HCL 10 MG/ML 20 ml VIAL (200 MG) ONE; Lactated Ringers 1000 ml BAG 1,000 ML IV SCH; Lidocaine 2% PF 5 ML VIAL ONE; NS 0.45% 1000 ml BAG 1,000 ML IV SCH; Naloxone 0.4 mg VIAL 0.4 mg/ml 1 ml VIAL IV PRN; Propofol 10 MG/ML 20 ML BTL ONE; Rocuronium 50 mg VIAL 10 mg/ml 5 ml VIAL (50 mg) ONE; fentaNYL 100 mcg/2 ml 50 MCG/ML VIAL IV PRN; fentaNYL 250 mcg/5 ml 50 MCG/ML 5 ml VIAL (250 MCG) ONE
[2024-03-13] MEDS ORDERED: ceFAZolin 2 GM PREMIX 2 GM/50 ML BAG ONE (09:28)
[2024-03-13] MEDS ORDERED: Tranexamic Acid 1 GM/100ML BAG 2,000 MG/200 ML BAG IV ONE (09:28)
[2024-03-13 09:57] LABS: Rapid COVID-19 Molecular Undetected (Undetected)
[2024-03-13] MEDS ORDERED: Bupivacaine 0.25% SDV 30 ML ONE (10:24)
[2024-03-13] MEDS ORDERED: Midazolam 2 mg/2 ml VIAL 1 mg/ml 2 ml VIAL (2 mg) ONE (11:10)
[2024-03-13] MEDS ORDERED: Glycopyrrolate IV 0.2 MG/ML 1 ML VIAL ONE (11:37)
[2024-03-13] MEDS ORDERED: fentaNYL 100 mcg/2 ml 50 MCG/ML VIAL ONE (12:18)
[2024-03-13] MEDS ORDERED: HYDROmorphone 0.5 MG/0.5 ML SYRINGE ONE (12:57)
[2024-03-13] MEDS ORDERED: Calcium Carb (TUMS) 500 mg CHEW TAB PO PRN (13:36)
[2024-03-13] MEDS ORDERED: Morphine 2 MG/ML SYRINGE IV PRN (13:36)
[2024-03-13] MEDS ORDERED: Lactulose 30 ml UDC PO PRN (13:36)
[2024-03-13] MEDS ORDERED: Ondansetron ODT 4 mg TAB 4 MG TAB PO PRN (13:36)
[2024-03-13] MEDS ORDERED: Magnesium Hydroxide LIQ 30 ML UDC PO PRN (13:36)
[2024-03-13] MEDS ORDERED: Ondansetron 4 mg VIAL 2 MG/ML 2 ml VIAL IV PRN (13:36)
[2024-03-13] MEDS ORDERED: Acetaminophen IV 1 GM/100ML 1,000 MG/100 ML BAG IV ONE (14:58)
[2024-03-13] MEDS: Acetaminophen IV 1 GM/100ML 1,000 MG/100 ML BAG IV ONE (15:00)
[2024-03-13] MEDS: Lactated Ringers 1000 ml BAG 1,000 ML IV SCH (15:54)
[2024-03-13] MEDS: BUPIVACAINE **LIPOSOME/PF 13.3 MG/ML (266MG/ 20ML) VIAL (RESTRICTED) INFIL ONE (16:46)
[2024-03-13] MEDS ORDERED: Albuterol HFA INHALER 8 gm MDI INH PRN (17:14)
[2024-03-13] MEDS: ceFAZolin 2 GM PREMIX 2 GM/50 ML BAG IV SCH (21:09)
[2024-03-13] MEDS: Magnesium Hydroxide LIQ 30 ML UDC PO SCH (21:14)
[2024-03-14 07:12] LABS: Hematocrit 34.6 % (35-45); Hemoglobin 11.7 g/dL (11.5-14.3); Mean Platelet Volume 8.8 fL (7.5-11.2); Platelet Count 201 10^3/uL (150-450)
[2024-03-14 07:38] LABS: Calcium 8.4 mg/dL (8.6-10.3); Creatinine, Serum 0.75 mg/dL (0.51-0.95); eGFR CKD-EPI 91.7 (>60)
[2024-03-14] MEDS: Vitamin THERAPEUTIC TAB PO SCH (09:15)
[2024-03-15 06:08] LABS: Hematocrit 32.7 % (35-45); Hemoglobin 11.1 g/dL (11.5-14.3); Mean Platelet Volume 8.7 fL (7.5-11.2); Platelet Count 191 10^3/uL (150-450)
[2024-03-15 10:18] VITALS: BP 117/68
== END 2024-03-15 11:32 | disposition home or self-care (01) ==
LOC: SSU 09:09 → OR 09:09
PROVIDERS: ADMIT Orthopaedic Surgery Sports Medicine; ATTEND Orthopaedic Surgery Sports Medicine